=== PATIENT | female | born 1960 | race Caucasian/White ===

== ENCOUNTER 2025-03-14 18:16 | Emergency (ER) | payer SELFPAY | END 2025-03-14 19:20 | disposition home or self-care (01) | LOC: MW.ED 18:16 | DX: S00.06XA Insect bite (nonvenomous) of scalp, initial encounter (principal); E03.9 Hypothyroidism, unspecified; Z79.899 Other long term (current) drug therapy; Z79.890 Hormone replacement therapy; W57.XXXA Bitten or stung by nonvenomous insect and other nonvenomous arthropods, initial encounter | CPT/HCPCS: 99283 ==